=== PATIENT | female | born 1995 | race Caucasian/White ===

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

== ENCOUNTER 2017-04-20 16:25 | Outpatient (CLI) | END 2017-04-20 16:26 | disposition home or self-care (01) | LOC: LAB 16:25 | PROVIDERS: ATTEND Emergency Medicine | DX: J06.9 Acute upper respiratory infection, unspecified (principal) | CPT/HCPCS: 87502; 87651 ==

== ENCOUNTER 2017-05-23 22:16 | Emergency (ER) ==
[2017-05-23 22:16] VITALS: BMI 32.9
[2017-05-23] MEDS ORDERED: TYLENOL PO STA (22:47)
[2017-05-23] MEDS ORDERED: ZITHROMAX PO STA (22:49)
--- NOTE | 2017-05-23 22:59 | ED.PDOC ---
General ED Provider: Dr. PETER LANE Chief Complaint: Nosebleed Stated Complaint: Patient is a 21 year old female who state she has had right sided headeache around the right eye. Starting today then she had a nose bleed for one hour prior to arrival. Bleeding has now stopped since placeing pressure on ther nose. Time Seen by Physician: 22:52 Mode of Arrival: Walk-In Information Source: Patient Nursing and Triage Documentation Reviewed and Agree: Yes Reviewed sepsis parameters & appropriate labs ordered?: No System Inflammatory Response Syndrome: Not Applicable Sepsis Protocol: For patient's 13 years and over: Temp is 96.8 and below OR 101 and greater Pulse >90 BPM Resp >20/minute Acutely Altered Mental Status Are patient's symptoms suggestive of a new infection, such as: -Pneumonia -Skin, Soft Tissue -Endocarditis -UTI -Bone, Joint Infection -Implantable Device -Acute Abdominal Infection -Wound Infection -Meningitis -Blood Stream Catheter Infection -Unknown System Inflammatory Response Syndrome: Not Applicable EENT Complaint Exam - Nasal Complaint/Exam Onset/Duration: 1 day Symptoms Are: Resolved Timing: Intermittent Initial Severity: Moderate Current Severity: None Location: Bilateral Character: Light bleeding Aggravating: Reports: URI. Denies: Nasal trauma, Nasal picking, Hypertension Alleviating: Reports: Pressure Associated Signs and Symptoms: Reports: Sinus pain, Nasal discharge Nasal Surgical History: Reports: None Foreign Body Present: No Septal Hematoma: No Differential Diagnoses: Epistaxis, Sinusitis Review of Systems - Review Of Systems Constitutional: Reports: No symptoms Eyes: Reports: No symptoms Ears, Nose, Mouth, Throat: Reports: Nose discharge, Epistaxis Respiratory: Reports: No symptoms Cardiac: Reports: No symptoms GI: Reports: No symptoms : Reports: No symptoms Musculoskeletal: Reports: No symptoms Skin: Reports: No symptoms Neurological: Reports: Anxiety, Headache (Rigth periorbital area.) Endocrine: Reports: No symptoms Hematologic/Lymphatic: Reports: No symptoms All Other Systems: Reviewed and Negative Past Medical History - Past Medical History Previously Healthy: Yes Endocrine: Reports: Unknown Cardiovascular: Reports: Unknown Respiratory: Reports: Unknown Hematological: Reports: Unknown Gastrointestinal: Reports: Unknown Genitourinary: Reports: Unknown Neuro/Psych: Reports: Unknown Musculoskeletal: Reports: Unknown Cancer: Reports: Unknown Last Menstrual Period: 04/25/17 - Surgical History General Surgical History: Reports: Unknown - Family History Family History: Reports: Unknown - Social History Smoking Status: Never smoker Hx Substance Use: No Alcohol Screening: None - Immunizations Tetanus Shot up to Date: Yes Physical Exam - Physical Exam Appearance: Ill-appearing, Obese Ill-appearing: Mild Eyes: NANCY, EOMI, Conjunctiva clear ENT: Ears normal, Oropharynx normal, Epistaxis Neck: Supple Respiratory: Airway patent, Breath sounds clear, Breath sounds equal, Respirations nonlabored Cardiovascular: RRR, Pulses normal, No rub, No murmur GI/: Soft, Nontender, No masses, Bowel sounds normal, No Organomegaly Musculoskeletal: Normal strength, ROM intact, No edema, No calf tenderness Skin: Warm, Dry, Normal color Neurological: Sensation intact, Motor intact, Reflexes intact, Cranial nerves intact, Alert, Oriented Psychiatric: Anxious Critical Care Note - Critical Care Note Total Time (mins): 0 Course - Course Orders, Labs, Meds: Orders Category Date Time Status Acetaminophen [Tylenol] MEDS 05/23/17 22:47 Stat 1,000 mg PO ONCE STA Azithromycin [Zithromax] MEDS 05/23/17 22:49 Stat 500 mg PO ONCE STA Medications Discontinued Medications Generic Name Dose Route Start Last Admin Trade Name Freq PRN Reason Stop Dose Admin Acetaminophen 1,000 mg 05/23/17 22:47 Tylenol PO 05/23/17 22:48 ONCE STA Azithromycin 500 mg 05/23/17 22:49 Zithromax PO 05/23/17 22:50 ONCE STA Vital Signs: Temp Pulse Resp BP Pulse Ox 05/23/17 22:17 98.7 F 92 H 22 140/84 99 Departure - Departure Time of Disposition: 23:00 Disposition: HOME SELF-CARE Discharge Problem: Epistaxis, Sinusitis chronic, frontal Instructions: Nosebleed (ED), Sinusitis (ED) Condition: Stable Pt referred to PMD for follow-up: Yes IPMP verified?: No Additional Instructions: take Antibiotics as prescribe Alternate Tylenol with Motrin as needed for pain or fever Prescriptions: Azithromycin [Zithromax] 250 mg PO DIRECTED #4 tablet Allergies/Adverse Reactions: Allergies ibuprofen Adverse Reaction (Verified 05/23/17 22:26) Hives LIQUID MOTRIN ONLY Penicillins Adverse Reaction (Verified 10/04/16 23:36) Hives Home Medications: Ambulatory Orders Levonorgestrel [Jenna] 1 each IY DIRECTED 04/20/17 Azithromycin [Zithromax] 250 mg PO DIRECTED #4 tablet 05/23/17 Disposition Discussed With: Patient, Family
[2017-05-23 23:09] VITALS: BP 122/84; TEMP 98.5
== END 2017-05-23 23:14 | disposition home or self-care (01) ==
LOC: ED 22:16
DX: R04.0 Epistaxis (principal); J32.1 Chronic frontal sinusitis
CPT/HCPCS: 99282